=== PATIENT | female | born 1970 | race Caucasian/White ===

== ENCOUNTER 2016-08-05 04:08 | Emergency (ER) | payer OTHER ==
--- NOTE | 2016-08-05 05:38 | ED NURSING NOTES ---
Clinical Report - Nurses [facility] [address] [place] [address] 08/05/2016 4:09 Patient: AMELIA MEJIA TRIAGE Triage time 04:17. Acuity: LEVEL 4. Chief Complaint: (right sided rib pain). Alert. No acute distress. --04:26 Deepti Cooper R.N. 04:17 08/05/16. BP: 122/88. HR: 76. RR: 15. O2 saturation: 98% on room air. Betancourt-Roper pain scale: 2/10. --04:26 Deepti Cooper R.N. Weight: 65.7 kg stated. Height/Length: 65 inches Per Patient. BMI: 24.1. --04:25 Deepti Cooper R.N. Medications Albuterol Sulfate Inhalation. --04:20 Deepti Cooper R.N. Azithromycin Oral (Tablet 250 mg) 2 tablets, daily, started 2 days ago. --04:20 Deepti Cooper R.N. Benadryl Oral (Tablet 25 mg) 2 tablets, at bedtime. --04:21 Deepti Cooper R.N. Melatonin Oral (Tablet 5 mg) 1 tablet, at bedtime. --04:21 Deepti Cooper R.N. Multivitamins Oral. --04:22 Deepti Cooper R.N. ProAir HFA Inhalation. --04:22 Deepti Cooper R.N. Propranolol HCl Oral 40 mg, 3x a day. --04:22 Deepti Cooper R.N. Strattera Oral (Capsule 60 mg) 1 capsule, daily. --04:23 Deepti Cooper R.N. Allergies Sulfa Antibiotics. --04:20 Deepti Cooper R.N. History Primary physician (Dr. Ambrose). ( pt thinks she may have broken ribs coughing.). Onset. (about 2 days ago). 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 PAST MEDICAL HX: Immunizations: up-to-date. Last normal menstrual period unknown. Uses an intrauterine device. SOCIAL HX: Light tobacco smoker (cigarette)- less than 1/2 a pack per day. Occasional alcohol use. No drug use. NUTRITIONAL RISK ASSESSMENT: The nutritional risk assessment revealed no deficiencies. FUNCTIONAL ASSESSMENT: Functional assessment: no impairments noted. --04:26 Deepti Cooper R.N. PROBLEMS: Anxiety Reaction. Depression. Migraine Headache. ADHD - Attention Deficit Hyperactivity Disorder. --04:24 Deepti Cooper R.N. ADDITIONAL SURGERIES: Bronchoscopy. . Hystoscopy. --04:24 Deepti Cooper R.N. Interventions ID band on patient. To treatment room. --04: Deepti Cooper R.N. PHYSICAL ASSESSMENT Ambulatory to room. GENERAL / NEURO / PSYCH: Alert. Oriented X 4. Appears in no acute distress. HEENT: Mucous membranes are pink. RESPIRATORY: Respirations not labored. CVS: Capillary refill less than 2 seconds. SKIN: Skin is warm and dry. --04:26 Deepti Cooper R.N. NURSING PROGRESS NOTES Head of bed elevated. Two patient identifiers checked. Call light placed in reach. Side rails up x 1. Bed placed in lowest position. Brakes of bed on. --04:27 Deepti Cooper R.N. Patient ready for evaluation- chart flagged. --04:27 Deepti Cooper R.N. 04:48 08/05/2016 Zofran ODT (Ondansetron) PO Oral Disintegrating Tablets 4 mg given. Allergies verified and confirmed 5 rights. --04:50 Deepti Cooper R.N. 04:49 08/05/2016 Percocet (Oxycodone-Acetaminophen) PO 5/325 mg Tablets 1 tab given. Allergies verified, confirmed 5 rights and sedative warning given to the patient. --04:50 Deepti Cooper R.N. DISPOSITION / DISCHARGE Condition at departure: stable. No learning barriers present. Discharge instructions provided and reviewed with the patient. Reviewed medication(s) side effects, precautions, dosing and course information. Prescription(s) given to the patient. Patient verbalized understanding. Written instructions provided in Greek. The patient was discharged home and accompanied by market intelligence consultant. She left the Emergency Department ambulatory and via private vehicle. Hvac Designer driving. --05:55 Deepti Cooper R.N. 05:55 08/05/16. BP: 127/77. HR: 71. RR: 15 (regular and unlabored). O2 saturation: 98% on room air. Temp: deferred. Betancourt-Roper pain scale: 2/10. --05:55 Deepti Cooper R.N. Locked/Released at 08/05/2016 5:56 by Deepti Cooper R.N.
--- NOTE | 2016-08-05 05:38 | ED CLINICAL REPORT ---
Clinical Report - Physicians/Mid Levels [facility] [address] [place] [address] 08/05/2016 4:09 Patient: AMELIA HANKINS Time Seen: 04:31. Arrived- By private vehicle. Historian- patient. HISTORY OF PRESENT ILLNESS Chief Complaint: Injury to CHEST. Location of injuries- chest. The injury occurred 2 days ago. Occurred at home. (coughed hard and noted "pop" in the right lateral chest wall area with subsequent tenderness). The patient complains of moderate pain. No neck pain, loss of consciousness or seizure. Not dazed. REVIEW OF SYSTEMS Uses an intrauterine device. No numbness, weakness, headache, depression or nausea. No bladder dysfunction, laceration, fever or vomiting. She has had chest pain. All systems otherwise negative, except as recorded above. PAST HISTORY Primary physician Dr. Ambrose PROBLEMS: Anxiety Reaction. Depression. Migraine Headache. ADHD - Attention Deficit Hyperactivity Disorder. Pneumonia - recently diagnosed (day 2 of azithromycin) SURGERIES: Bronchoscopy. . Hystoscopy. SOCIAL HISTORY Smoker- current status unknown. Occasional alcohol use. No drug use. ADDITIONAL NOTES The nursing notes have been reviewed. PHYSICAL EXAM Vital Signs: 08/05/2016 04:17 BP: 122/88. HR: 76. RR: 15. O2 saturation: 98%. Betancourt-Roper pain scale: 2/10. Appearance: Alert. Oriented X3. Anxious. Patient in moderate distress. Head: Head non-tender. No swelling of head. No Roger's sign or raccoon eyes. Eyes: EOM intact. ENT: No dental injury. Pharynx normal. Neck: Non-tender. CVS: Heart sounds normal. Pulses normal. No JVD, extra heart sounds or cardiac murmur. Respiratory: No respiratory distress. Chest wall injury: moderate tenderness located in the lower, left and lateral chest. No abrasion. No ecchymosis. No deformity. Breath sounds normal. No decreased breath sounds, rales, wheezes, rhonchi or crepitus. Abdomen: No visible injury. Soft and nontender. No mass. Back: ROM normal. No vertebral point tenderness. Skin: Skin intact. Skin warm and dry. Normal skin color. Normal skin turgor. Extremities: Normal inspection. Pelvis stable. Extremities atraumatic. No lower extremity edema. (no calf tenderness). Neuro: [place] Coma Scale: 15- eyes open spontaneously (4); best verbal response- oriented x 3 (5); best motor response- obeys commands (6). Oriented X 3. No motor deficit. No sensory deficit. LABS, X-RAYS, AND EKG Chest X-ray: Normal heart size. Mediastinum normal. Great vessels normal. Soft tissues normal. No infiltrate. No fracture. No bony lesion present. (increased interstitial markings - c/w resolving pneumonia / pneumonitis). Views: PA and lateral. Technique: good. The X-rays were interpreted contemporaneously by me. The X-rays were discussed with the radiologist (Dr Landa will call or make a report to Dr. Arnol Hankins's pcp at [facility]). Pulse Oximetry: 08/05/2016 04:17 O2 saturation: 98%. (FIO2 - room air). Interpretation: normal. PROGRESS AND PROCEDURES Course of Care: Percocet 5 mg PO given. Zofran 4 mg ODT PO given. Patient is stable. Physical exam findings are improved. Symptoms much better. Patient/family counseled. Old medical records ordered. Disposition: Discharged. Condition: stable and improved. CLINICAL IMPRESSION Chest wall pain. An EKG was not performed because a noncardiac etiology was evident without doing an EKG. INSTRUCTIONS Apply ice. Do not work for two days. Do not smoke. Seek medical help to quit smoking. Warnings: SEDATIVE MEDICATION: You were given sedative medication during your visit. Do not drive or operate dangerous machinery. CONTROLLED SUBSTANCE WARNINGS. GENERAL WARNINGS: Return or contact your physician immediately if your condition worsens or changes unexpectedly, if not improving as expected, or if other problems arise. Your Current Medications: CONTINUE TAKING THE FOLLOWING MEDICATIONS: Albuterol Sulfate Inhalation. Azithromycin Oral : Tablet 250 mg, 2 tablets daily, Started: 2 days ago. Benadryl Oral : Tablet 25 mg, 2 tablets at bedtime. Melatonin Oral : Tablet 5 mg, 1 tablet at bedtime. Multivitamins Oral. ProAir HFA Inhalation. Propranolol HCl Oral : 40 mg 3x a day. Strattera Oral : Capsule 60 mg, 1 capsule daily. Prescription Medications: Hydrocodone/APAP 5mg / 325mg: take 1 orally every 8 hours as needed for pain. Dispense ten (10). No refill. OTC Medications: Acetaminophen (available over the counter): take according to label instructions. Motrin (available over the counter): take according to label instructions. Follow-up: Follow up with your doctor tomorrow. (Electronically signed by aMik Syed DO 08/05/2016 6:36)
--- NOTE | 2016-08-05 05:38 | ED CLINICAL REPORT ---
Clinical Report - Physicians/Mid Levels [facility] [address] [place] [address] 08/05/2016 4:09 Patient: AMELIA HANKINS Time Seen: 04:31. Arrived- By private vehicle. Historian- patient. HISTORY OF PRESENT ILLNESS Chief Complaint: Injury to CHEST. Location of injuries- chest. The injury occurred 2 days ago. Occurred at home. (coughed hard and noted "pop" in the right lateral chest wall area with subsequent tenderness). The patient complains of moderate pain. No neck pain, loss of consciousness or seizure. Not dazed. REVIEW OF SYSTEMS Uses an intrauterine device. No numbness, weakness, headache, depression or nausea. No bladder dysfunction, laceration, fever or vomiting. She has had chest pain. All systems otherwise negative, except as recorded above. PAST HISTORY Primary physician Dr. Ambrose PROBLEMS: Anxiety Reaction. Depression. Migraine Headache. ADHD - Attention Deficit Hyperactivity Disorder. Pneumonia - recently diagnosed (day 2 of azithromycin) SURGERIES: Bronchoscopy. . Hystoscopy. SOCIAL HISTORY Smoker- current status unknown. Occasional alcohol use. No drug use. ADDITIONAL NOTES The nursing notes have been reviewed. PHYSICAL EXAM Vital Signs: 08/05/2016 04:17 BP: 122/88. HR: 76. RR: 15. O2 saturation: 98%. Betancourt-Roper pain scale: 2/10. Appearance: Alert. Oriented X3. Anxious. Patient in moderate distress. Head: Head non-tender. No swelling of head. No Roger's sign or raccoon eyes. Eyes: EOM intact. ENT: No dental injury. Pharynx normal. Neck: Non-tender. CVS: Heart sounds normal. Pulses normal. No JVD, extra heart sounds or cardiac murmur. Respiratory: No respiratory distress. Chest wall injury: moderate tenderness located in the lower, left and lateral chest. No abrasion. No ecchymosis. No deformity. Breath sounds normal. No decreased breath sounds, rales, wheezes, rhonchi or crepitus. Abdomen: No visible injury. Soft and nontender. No mass. Back: ROM normal. No vertebral point tenderness. Skin: Skin intact. Skin warm and dry. Normal skin color. Normal skin turgor. Extremities: Normal inspection. Pelvis stable. Extremities atraumatic. No lower extremity edema. (no calf tenderness). Neuro: [place] Coma Scale: 15- eyes open spontaneously (4); best verbal response- oriented x 3 (5); best motor response- obeys commands (6). Oriented X 3. No motor deficit. No sensory deficit. LABS, X-RAYS, AND EKG Chest X-ray: Normal heart size. Mediastinum normal. Great vessels normal. Soft tissues normal. No infiltrate. No fracture. No bony lesion present. (increased interstitial markings - c/w resolving pneumonia / pneumonitis). Views: PA and lateral. Technique: good. The X-rays were interpreted contemporaneously by me. The X-rays were discussed with the radiologist (Dr Landa will call or make a report to Dr. Arnol Hankins's pcp at [facility]). Pulse Oximetry: 08/05/2016 04:17 O2 saturation: 98%. (FIO2 - room air). Interpretation: normal. PROGRESS AND PROCEDURES Course of Care: Percocet 5 mg PO given. Zofran 4 mg ODT PO given. Patient is stable. Physical exam findings are improved. Symptoms much better. Patient/family counseled. Old medical records ordered. Disposition: Discharged. Condition: stable and improved. CLINICAL IMPRESSION Chest wall pain. An EKG was not performed because a noncardiac etiology was evident without doing an EKG. INSTRUCTIONS Apply ice. Do not work for two days. Do not smoke. Seek medical help to quit smoking. Warnings: SEDATIVE MEDICATION: You were given sedative medication during your visit. Do not drive or operate dangerous machinery. CONTROLLED SUBSTANCE WARNINGS. GENERAL WARNINGS: Return or contact your physician immediately if your condition worsens or changes unexpectedly, if not improving as expected, or if other problems arise. Your Current Medications: CONTINUE TAKING THE FOLLOWING MEDICATIONS: Albuterol Sulfate Inhalation. Azithromycin Oral : Tablet 250 mg, 2 tablets daily, Started: 2 days ago. Benadryl Oral : Tablet 25 mg, 2 tablets at bedtime. Melatonin Oral : Tablet 5 mg, 1 tablet at bedtime. Multivitamins Oral. ProAir HFA Inhalation. Propranolol HCl Oral : 40 mg 3x a day. Strattera Oral : Capsule 60 mg, 1 capsule daily. Prescription Medications: Hydrocodone/APAP 5mg / 325mg: take 1 orally every 8 hours as needed for pain. Dispense ten (10). No refill. OTC Medications: Acetaminophen (available over the counter): take according to label instructions. Motrin (available over the counter): take according to label instructions. Follow-up: Follow up with your doctor tomorrow. (Electronically signed by Maik Syed DO 08/05/2016 6:36)
--- NOTE | 2016-08-05 05:38 | ED NURSING NOTES ---
Clinical Report - Nurses [facility] [address] [place] [address] 08/05/2016 4:09 Patient: AMELIA MEJIA TRIAGE Triage time 04:17. Acuity: LEVEL 4. Chief Complaint: (right sided rib pain). Alert. No acute distress. --04:26 Deepti Cooper R.N. 04:17 08/05/16. BP: 122/88. HR: 76. RR: 15. O2 saturation: 98% on room air. Betancourt-Roper pain scale: 2/10. --04:26 Deepti Cooper R.N. Weight: 65.7 kg stated. Height/Length: 65 inches Per Patient. BMI: 24.1. --04:25 Deepti Cooper R.N. Medications Albuterol Sulfate Inhalation. --04:20 Deepti Cooper R.N. Azithromycin Oral (Tablet 250 mg) 2 tablets, daily, started 2 days ago. --04:20 Deepti Cooper R.N. Benadryl Oral (Tablet 25 mg) 2 tablets, at bedtime. --04:21 Deepti Cooper R.N. Melatonin Oral (Tablet 5 mg) 1 tablet, at bedtime. --04:21 Deepti Cooper R.N. Multivitamins Oral. --04:22 Deepti Cooper R.N. ProAir HFA Inhalation. --04:22 Deepti Cooper R.N. Propranolol HCl Oral 40 mg, 3x a day. --04:22 Deepti Cooper R.N. Strattera Oral (Capsule 60 mg) 1 capsule, daily. --04:23 Deepti Cooper R.N. Allergies Sulfa Antibiotics. --04:20 Deepti Cooper R.N. History Primary physician (Dr. Ambrose). ( pt thinks she may have broken ribs coughing.). Onset. (about 2 days ago). 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 PAST MEDICAL HX: Immunizations: up-to-date. Last normal menstrual period unknown. Uses an intrauterine device. SOCIAL HX: Light tobacco smoker (cigarette)- less than 1/2 a pack per day. Occasional alcohol use. No drug use. NUTRITIONAL RISK ASSESSMENT: The nutritional risk assessment revealed no deficiencies. FUNCTIONAL ASSESSMENT: Functional assessment: no impairments noted. --04:26 Deepti Cooper R.N. PROBLEMS: Anxiety Reaction. Depression. Migraine Headache. ADHD - Attention Deficit Hyperactivity Disorder. --04:24 Deepti Cooper R.N. ADDITIONAL SURGERIES: Bronchoscopy. . Hystoscopy. --04:24 Deepti Cooper R.N. Interventions ID band on patient. To treatment room. --04: Deepti Cooper R.N. PHYSICAL ASSESSMENT Ambulatory to room. GENERAL / NEURO / PSYCH: Alert. Oriented X 4. Appears in no acute distress. HEENT: Mucous membranes are pink. RESPIRATORY: Respirations not labored. CVS: Capillary refill less than 2 seconds. SKIN: Skin is warm and dry. --04:26 Deepti Cooper R.N. NURSING PROGRESS NOTES Head of bed elevated. Two patient identifiers checked. Call light placed in reach. Side rails up x 1. Bed placed in lowest position. Brakes of bed on. --04:27 Deepti Cooper R.N. Patient ready for evaluation- chart flagged. --04:27 Deepti Cooper R.N. 04:48 08/05/2016 Zofran ODT (Ondansetron) PO Oral Disintegrating Tablets 4 mg given. Allergies verified and confirmed 5 rights. --04:50 Deepti Cooper R.N. 04:49 08/05/2016 Percocet (Oxycodone-Acetaminophen) PO 5/325 mg Tablets 1 tab given. Allergies verified, confirmed 5 rights and sedative warning given to the patient. --04:50 Deepti Cooper R.N. DISPOSITION / DISCHARGE Condition at departure: stable. No learning barriers present. Discharge instructions provided and reviewed with the patient. Reviewed medication(s) side effects, precautions, dosing and course information. Prescription(s) given to the patient. Patient verbalized understanding. Written instructions provided in [place]. The patient was discharged home and accompanied by student records specialist. She left the Emergency Department ambulatory and via private vehicle. Educational Adviser driving. --05:55 Deepti Cooper R.N. 05:55 08/05/16. BP: 127/77. HR: 71. RR: 15 (regular and unlabored). O2 saturation: 98% on room air. Temp: deferred. Betancourt-Roper pain scale: 2/10. --05:55 Deepti Cooper R.N. Locked/Released at 08/05/2016 5:56 by Deepti Cooper R.N.
--- NOTE | 2016-08-05 05:38 | ED ORDER SUMMARY ---
..... Patient: AMELIA MEJIA OrderSheet [facility] VisitID: [id number] [address] [place] [address] 46y, F Registration Date/Time: 08/05/2016 ORDER SHEET Weight: 65.7 kg (stated) Allergies: Sulfa Antibiotics GENERAL ORDERS: Chest 2V Urgent (04:46 08/05/2016 [facility]) (4:55 Mariah) MEDICATION ORDERS: Percocet PO 5/325 mg (HIGH ALERT MEDICATION, NOW) (04:47 08/05/2016 [facility]) (Ack 4:47 RCollier R.N.) (4:50 RCollier R.N.) Zofran ODT PO 4 mg (NOW) (04:47 08/05/2016 [facility]) (Ack 4:47 RCollier R.N.) (4:50 RCollier R.N.) IV FLUIDS: ORDER SHEET NOTES: [Electronically signed by Deepti Cooper R.N. (05:56 08/05/2016)] [Electronically signed by Maik Syed DO (06:36 08/05/2016)] [Electronically locked/signed by Deepti Cooper R.N. (05:56 08/05/2016)]
--- NOTE | 2016-08-05 05:38 | ED ORDER SUMMARY ---
..... Patient: AMELIA MEJIA OrderSheet [facility] VisitID: [id number] [address] [place] [address] 46y, F Registration Date/Time: 08/05/2016 ORDER SHEET Weight: 65.7 kg (stated) Allergies: Sulfa Antibiotics GENERAL ORDERS: Chest 2V Urgent (04:46 08/05/2016 [facility]) (4:55 Mariah) MEDICATION ORDERS: Percocet PO 5/325 mg (HIGH ALERT MEDICATION, NOW) (04:47 08/05/2016 [facility]) (Ack 4:47 RCollier R.N.) (4:50 RCollier R.N.) Zofran ODT PO 4 mg (NOW) (04:47 08/05/2016 [facility]) (Ack 4:47 RCollier R.N.) (4:50 RCollier R.N.) IV FLUIDS: ORDER SHEET NOTES: [Electronically signed by Deepti Cooper R.N. (05:56 08/05/2016)] [Electronically signed by Maik Syed DO (06:36 08/05/2016)] [Electronically locked/signed by Deepti Cooper R.N. (05:56 08/05/2016)]
--- NOTE | 2016-08-05 06:37 | ED MED RECONCILIATION SUMMARY ---
Patient: AMELIA MEJIA Medication Reconciliation Report [facility] VisitID: [id number] [place] [address] 46y, F Registration Date/Time: 08/05/2016 Weight: 65.7 kg Height/Length: 65 in. BMI: 24.1 ALLERGIES: Sulfa Antibiotics The patient's Home Medications are listed below: CONTINUE TAKING THE FOLLOWING MEDICATIONS: Albuterol Sulfate Inhalation Azithromycin Oral (250 mg) 2 tablets, daily Benadryl Oral (25 mg) 2 tablets, at bedtime Melatonin Oral (5 mg) 1 tablet, at bedtime Multivitamins Oral ProAir HFA Inhalation Propranolol HCl Oral 40 mg, 3x a day Strattera Oral (60 mg) 1 capsule, daily The source(s) of the original Home Medication information: Not obtained. The following Medications were given to the patient in the Emergency Department: Zofran ODT [PO] PO 4 mg, administered: 08/05/2016 4:48:00 AM Percocet [PO] PO 1 tab, administered: 08/05/2016 4:49:00 AM The following Medications were prescribed to the patient: Acetaminophen (available over the counter): take according to label instructions. -- Maik Syed DO Motrin (available over the counter): take according to label instructions. -- Maik Syed DO Hydrocodone/APAP 5mg / 325mg: take 1 orally every 8 hours as needed for pain. Dispense ten (10). No refill. -- Maik Syed DO
--- NOTE | 2016-08-05 06:37 | ED MAR SUMMARY ---
..... Medication Administration Record [facility] [address] [place] [address] Patient: AMELIA MEJIA Visit ID: [id number] 46y, F Weight: 65.7 kg Height/Length: 65 in BMI: 24.1 ALLERGIES: Sulfa Antibiotics Given 04:48 08/05/2016 Deepti Cooper, R.N. Medication Administered: ZOFRAN ODT [PO] (ONDANSETRON), Dose: 4 mg Oral Disintegrating Tablets PO. Medication Ordered: Zofran ODT PO 4 mg (NOW). Given 04:49 08/05/2016 Deepti Cooper, R.N. Medication Administered: PERCOCET [PO] (OXYCODONE-ACETAMINOPHEN), Dose: 1 tab 5/325 mg Tablets PO. Medication Ordered: Percocet PO 5/325 mg (HIGH ALERT MEDICATION, NOW).
--- NOTE | 2016-08-05 06:37 | ED DISCHARGE INSTRUCTIONS ---
Patient: AMELIA MEJIA General Instructions [facility] VisitID: [id number] [place] [address] 46y, F Registration Date/Time: 08/05/2016 Chest wall pain. An EKG was not performed because a noncardiac etiology was evident without doing an EKG. INSTRUCTIONS Apply ice. Do not work for two days. Do not smoke. Seek medical help to quit smoking. Warnings: SEDATIVE MEDICATION: You were given sedative medication during your visit. Do not drive or operate dangerous machinery. CONTROLLED SUBSTANCE WARNINGS. GENERAL WARNINGS: Return or contact your physician immediately if your condition worsens or changes unexpectedly, if not improving as expected, or if other problems arise. Your Current Medications: CONTINUE TAKING THE FOLLOWING MEDICATIONS: Albuterol Sulfate Inhalation. Azithromycin Oral : Tablet 250 mg, 2 tablets daily, Started: 2 days ago. Benadryl Oral : Tablet 25 mg, 2 tablets at bedtime. Melatonin Oral : Tablet 5 mg, 1 tablet at bedtime. Multivitamins Oral. ProAir HFA Inhalation. Propranolol HCl Oral : 40 mg 3x a day. Strattera Oral : Capsule 60 mg, 1 capsule daily. Prescription Medications: Hydrocodone/APAP 5mg / 325mg: take 1 orally every 8 hours as needed for pain. Dispense ten (10). No refill. OTC Medications: Acetaminophen (available over the counter): take according to label instructions. Motrin (available over the counter): take according to label instructions. Follow-up: Follow up with your doctor tomorrow. ADDITIONAL INFORMATION Chest Strain A strain of the chest is due to stretching and tearing of the muscle fibers between the ribs. This may occur as a result of severe coughing, strenuous lifting or twisting injuries of the upper back. This usually causes increased pain with movement or deep breathing. This may take a few days to a few weeks to heal. Home Care: Rest. Avoid heavy lifting or strenuous exertion. Avoid any activity that causes pain. If you have a severe cough, use a cough syrup such as Robitussin DM (containing dextromethorphan) unless another cough medicine was prescribed. You may use acetaminophen (Tylenol) or ibuprofen (Motrin, Advil) to control pain, unless another medicine was prescribed. [ NOTE: If you have chronic liver or kidney disease or ever had a stomach ulcer or GI bleeding, talk with your doctor before using these medicines.] Follow Up with your doctor as directed. Get Prompt Medical Attention if any of the following occur: A change in the type of pain: if it feels different, becomes more severe, lasts longer, or begins to spread into your shoulder, arm, neck, jaw or back Shortness of breath or increased pain with breathing Cough with dark colored sputum (phlegm) or blood Weakness, dizziness, or fainting Fever of 100.4F (38C) or higher, or as directed by your healthcare provider How To Quit Smoking Smoking is one of the hardest habits to break. About half of all those who have ever smoked have been able to quit, and most of those (about 70%) who still smoke want to quit. Here are some of the best ways to stop smoking. Keep Trying: It takes most smokers about 8 tries before they are finally able to fully quit. So, the more often you try and fail, the better your chance of quitting the next time! So, don't give up! Go Cold [place]: Most ex-smokers quit cold turkey. Trying to cut back gradually doesn't seem to work as well, perhaps because it continues the smoking habit. Also, it is possible to fool yourself by inhaling more while smoking fewer cigarettes. This results in the same amount of nicotine in your body! Get Support: Support programs can make an important difference, especially for the heavy smoker. These groups offer lectures, methods to change your behavior and peer support. Call the free national Quitline for more information. 687-QYIA-HNS (539-323-6464). Low-cost or free programs are offered by many hospitals, local chapters of the [employer] [employer] (442-127-9460) and the [employer] (860-091-4675). Support at home is important too. Non-smokers can help by offering praise and encouragement. If the smoker fails to quit, encourage them to try again! Mtpc-Xfy-[id number] Medicines: For those who can't quit on their own, Nicotine Replacement Therapy (NRT) may make quitting much easier. Certain aids such as the nicotine patch, gum and lozenge are available without a prescription. However, it is best to use these under the guidance of your doctor. The skin patch provides a steady supply of nicotine to the body. Nicotine gum and lozenge gives temporary bursts of low levels of nicotine. Both methods take the edge off the craving for cigarettes. WARNING: If you feel symptoms of nicotine overdose, such as nausea, vomiting, dizziness, weakness, or fast heartbeat, stop using these and see your doctor. Prescription Medicines: After evaluating your smoking patterns and prior attempts at quitting, your doctor may offer a prescription medicine such as bupropion (Zyban, Wellbutrin), varenicline (Chantix, Champix), a niocotine inhaler or nasal spray. Each has its unique advantage and side effects which your doctor can review with you. Health Benefits Of Quitting: The benefits of quitting start right away and keep improving the longer you go without smokin minutes: blood pressure and pulse return to normal 8 hours: oxygen levels return to normal 2 days: ability to smell and taste begins to improve as damaged nerves start to regrow 2-3 weeks: circulation and lung function improves 1-9 months: decreased cough, congestion and shortness of breath; less tired 1 year: risk of heart attack decreases by half 5 years: risk of lung cancer decreases by half; risk of stroke becomes the same as a non-smoker For information about how to quit smoking, visit the following links: [employer] , Clearing the Air, Quit Smoking Today - an online booklet. http://www.smokefree.gov/pubs/clearing_the_air.pdf Smokefree.gov http://smokefree.gov/ QuitNet http://www.quitnet.com/ Hydrocodone Bitartrate, Acetaminophen Oral tablet What is this medicine? ACETAMINOPHEN; HYDROCODONE (a set a HAYDEE edu fen; kalyani droe KOE done) is a pain reliever. It is used to treat mild to moderate pain. How should I use this medicine? Take this medicine by mouth. Swallow it with a full glass of water. Follow the directions on the prescription label. If the medicine upsets your stomach, take the medicine with food or milk. Do not take more than you are told to take. Talk to your senior oracle dba regarding the use of this medicine in children. This medicine is not approved for use in children. What side effects may I notice from receiving this medicine? Side effects that you should report to your doctor or health post acute care nurse practitioner as soon as possible: allergic reactions like skin rash, itching or hives, swelling of the face, lips, or tongue breathing problems confusion feeling faint or lightheaded, falls stomach pain yellowing of the eyes or skin Side effects that usually do not require medical attention (report to your doctor or health post acute care nurse practitioner if they continue or are bothersome): nausea, vomiting stomach upset What may interact with this medicine? alcohol antihistamines isoniazid medicines for depression, anxiety, or psychotic disturbances medicines for sleep muscle relaxants naltrexone narcotic medicines (opiates) for pain phenobarbital ritonavir tramadol What if I miss a dose? If you miss a dose, take it as soon as you can. If it is almost time for your next dose, take only that dose. Do not take double or extra doses. Where should I keep my medicine? Keep out of the reach of children. This medicine can be abused. Keep your medicine in a safe place to protect it from theft. Do not share this medicine with anyone. Selling or giving away this medicine is dangerous and against the law. Store at room temperature between 15 and 30 degrees C (59 and 86 degrees F). Protect from light. Keep container tightly closed. Throw away any unused medicine after the expiration date. Discard unused medicine and used packaging carefully. Pets and children can be harmed if they find used or lost packages. What should I tell my health care provider before I take this medicine? They need to know if you have any of these conditions: brain tumor Crohn's disease, inflammatory bowel disease, or ulcerative colitis drink more than 3 alcohol-containing drinks per day drug abuse or addiction head injury heart or circulation problems kidney disease or problems going to the bathroom liver disease lung disease, asthma, or breathing problems an unusual or allergic reaction to acetaminophen, hydrocodone, other opioid analgesics, other medicines, foods, dyes, or preservatives or trying to get breast-feeding What should I watch for while using this medicine? Tell your doctor or health post acute care nurse practitioner if your pain does not go away, if it gets worse, or if you have new or a different type of pain. You may develop tolerance to the medicine. Tolerance means that you will need a higher dose of the medicine for pain relief. Tolerance is normal and is expected if you take the medicine for a long time. Do not suddenly stop taking your medicine because you may develop a severe reaction. Your body becomes used to the medicine. This does NOT mean you are addicted. Addiction is a behavior related to getting and using a drug for a non-medical reason. If you have pain, you have a medical reason to take pain medicine. Your doctor will tell you how much medicine to take. If your doctor wants you to stop the medicine, the dose will be slowly lowered over time to avoid any side effects. You may get drowsy or dizzy when you first start taking the medicine or change doses. Do not drive, use machinery, or do anything that may be dangerous until you know how the medicine affects you. Stand or sit up slowly. There are different types of narcotic medicines (opiates) for pain. If you take more than one type at the same time, you may have more side effects. Give your health care provider a list of all medicines you use. Your doctor will tell you how much medicine to take. Do not take more medicine than directed. Call emergency for help if you have problems breathing. The medicine will cause constipation. Try to have a bowel movement at least every 2 to 3 days. If you do not have a bowel movement for 3 days, call your doctor or health post acute care nurse practitioner. Too much acetaminophen can be very dangerous. Do not take Tylenol (acetaminophen) or medicines that contain acetaminophen with this medicine. Many non-prescription medicines contain acetaminophen. Always read the labels carefully. Acetaminophen Oral tablet What is this medicine? ACETAMINOPHEN (a set a HAYDEE edu fen) is a pain reliever. It is used to treat mild pain and fever. How should I use this medicine? Take this medicine by mouth with a glass of water. Follow the directions on the package or prescription label. Take your medicine at regular intervals. Do not take your medicine more often than directed. Talk to your senior oracle dba regarding the use of this medicine in children. While this drug may be prescribed for children as young as 6 years of age for selected conditions, precautions do apply. What side effects may I notice from receiving this medicine? Side effects that you should report to your doctor or health post acute care nurse practitioner as soon as possible: allergic reactions like skin rash, itching or hives, swelling of the face, lips, or tongue breathing problems fever or sore throat redness, blistering, peeling or loosening of the skin, including inside the mouth trouble passing urine or change in the amount of urine unusual bleeding or bruising unusually weak or tired yellowing of the eyes or skin Side effects that usually do not require medical attention (report to your doctor or health post acute care nurse practitioner if they continue or are bothersome): headache nausea, stomach upset What may interact with this medicine? alcohol imatinib isoniazid other medicines with acetaminophen What if I miss a dose? If you miss a dose, take it as soon as you can. If it is almost time for your next dose, take only that dose. Do not take double or extra doses. Where should I keep my medicine? Keep out of reach of children. Store at room temperature between 20 and 25 degrees C (68 and 77 degrees F). Protect from moisture and heat. Throw away any unused medicine after the expiration date. What should I tell my health care provider before I take this medicine? They need to know if you have any of these conditions: if you frequently drink alcohol containing drinks liver disease an unusual or allergic reaction to acetaminophen, other medicines, foods, dyes or preservatives or trying to get breast-feeding What should I watch for while using this medicine? Tell your doctor or health post acute care nurse practitioner if the pain lasts more than 10 days (5 days for children), if it gets worse, or if there is a new or different kind of pain. Also, check with your doctor if a fever lasts for more than 3 days. Do not take other medicines that contain acetaminophen with this medicine. Always read labels carefully. If you have questions, ask your doctor or pharmacist. If you take too much acetaminophen get medical help right away. Too much acetaminophen can be very dangerous and cause liver damage. Even if you do not have symptoms, it is important to get help right away. Ibuprofen Oral tablet What is this medicine? IBUPROFEN (eye BYOO proe fen) is a non-steroidal anti-inflammatory drug (NSAID). It is used for dental pain, fever, headaches or migraines, osteoarthritis, rheumatoid arthritis, or painful monthly periods. It can also relieve minor aches and pains caused by a cold, flu, or sore throat. How should I use this medicine? Take this medicine by mouth with a glass of water. Follow the directions on the prescription label. Take this medicine with food if your stomach gets upset. Try to not lie down for at least 10 minutes after you take the medicine. Take your medicine at regular intervals. Do not take your medicine more often than directed. A special MedGuide will be given to you by the pharmacist with each prescription and refill. Be sure to read this information carefully each time. Talk to your senior oracle dba regarding the use of this medicine in children. Special care may be needed. What side effects may I notice from receiving this medicine? Side effects that you should report to your doctor or health post acute care nurse practitioner as soon as possible: allergic reactions like skin rash, itching or hives, swelling of the face, lips, or tongue black or bloody stools, blood in the urine or in vomit breathing problems changes in vision chest pain general ill feeling or flu-like symptoms nausea or vomiting redness, blistering, peeling or loosening of the skin, including inside the mouth slurred speech or weakness on one side of the body stomach pain unexplained weight gain or swelling unusually weak or tired yellowing of eyes or skin Side effects that usually do not require medical attention (report to your doctor or health post acute care nurse practitioner if they continue or are bothersome): constipation or diarrhea dizziness gas or heartburn stomach upset What may interact with this medicine? Do not take this medicine with any of the following medications: cidofovir ketorolac methotrexate pemetrexed This medicine may also interact with the following medications: alcohol aspirin diuretics lithium other drugs for inflammation like prednisone warfarin What if I miss a dose? If you miss a dose, take it as soon as you can. If it is almost time for your next dose, take only that dose. Do not take double or extra doses. Where should I keep my medicine? Keep out of the reach of children. Store at room temperature between 15 and 30 degrees C (59 and 86 degrees F). Keep container tightly closed. Throw away any unused medicine after the expiration date. What should I tell my health care provider before I take this medicine? They need to know if you have any of these conditions: asthma cigarette smoker drink more than 3 alcohol containing drinks a day heart disease or circulation problems such as heart failure or leg edema (fluid retention) high blood pressure kidney disease liver disease stomach bleeding or ulcers an unusual or allergic reaction to ibuprofen, aspirin, other NSAIDS, other medicines, foods, dyes, or preservatives or trying to get breast-feeding What should I watch for while using this medicine? Tell your doctor or healthcare professional if your symptoms do not start to get better or if they get worse. This medicine does not prevent heart attack or stroke. In fact, this medicine may increase the chance of a heart attack or stroke. The chance may increase with longer use of this medicine and in people who have heart disease. If you take aspirin to prevent heart attack or stroke, talk with your doctor or health post acute care nurse practitioner. Do not take other medicines that contain aspirin, ibuprofen, or naproxen with this medicine. Side effects such as stomach upset, nausea, or ulcers may be more likely to occur. Many medicines available without a prescription should not be taken with this medicine. This medicine can cause ulcers and bleeding in the stomach and intestines at any time during treatment. Ulcers and bleeding can happen without warning symptoms and can cause . To reduce your risk, do not smoke cigarettes or drink alcohol while you are taking this medicine. You may get drowsy or dizzy. Do not drive, use machinery, or do anything that needs mental alertness until you know how this medicine affects you. Do not stand or sit up quickly, especially if you are an older patient. This reduces the risk of dizzy or fainting spells. This medicine can cause you to bleed more easily. Try to avoid damage to your teeth and gums when you brush or floss your teeth. You have been given the following additional information: Chest Wall Strain Smoking Cessation Hydrocodone Bitartrate, Acetaminophen Oral tablet Acetaminophen Oral tablet Ibuprofen Oral tablet Do not work for two days. (Electronically signed by Maik Syed DO 08/05/2016 6:36)
--- NOTE | 2016-08-05 06:37 | ED MAR SUMMARY ---
..... Medication Administration Record [facility] [address] [place] [address] Patient: AMELIA MEJIA Visit ID: [id number] 46y, F Weight: 65.7 kg Height/Length: 65 in BMI: 24.1 ALLERGIES: Sulfa Antibiotics Given 04:48 08/05/2016 Deepti Cooper, R.N. Medication Administered: ZOFRAN ODT [PO] (ONDANSETRON), Dose: 4 mg Oral Disintegrating Tablets PO. Medication Ordered: Zofran ODT PO 4 mg (NOW). Given 04:49 08/05/2016 Deepti Cooper, R.N. Medication Administered: PERCOCET [PO] (OXYCODONE-ACETAMINOPHEN), Dose: 1 tab 5/325 mg Tablets PO. Medication Ordered: Percocet PO 5/325 mg (HIGH ALERT MEDICATION, NOW).
--- NOTE | 2016-08-05 06:37 | ED MED RECONCILIATION SUMMARY ---
Patient: AMELIA MEJIA Medication Reconciliation Report [facility] VisitID: [id number] [place] [address] 46y, F Registration Date/Time: 08/05/2016 Weight: 65.7 kg Height/Length: 65 in. BMI: 24.1 ALLERGIES: Sulfa Antibiotics The patient's Home Medications are listed below: CONTINUE TAKING THE FOLLOWING MEDICATIONS: Albuterol Sulfate Inhalation Azithromycin Oral (250 mg) 2 tablets, daily Benadryl Oral (25 mg) 2 tablets, at bedtime Melatonin Oral (5 mg) 1 tablet, at bedtime Multivitamins Oral ProAir HFA Inhalation Propranolol HCl Oral 40 mg, 3x a day Strattera Oral (60 mg) 1 capsule, daily The source(s) of the original Home Medication information: Not obtained. The following Medications were given to the patient in the Emergency Department: Zofran ODT [PO] PO 4 mg, administered: 08/05/2016 4:48:00 AM Percocet [PO] PO 1 tab, administered: 08/05/2016 4:49:00 AM The following Medications were prescribed to the patient: Acetaminophen (available over the counter): take according to label instructions. -- Maik Syed DO Motrin (available over the counter): take according to label instructions. -- Maik Syed DO Hydrocodone/APAP 5mg / 325mg: take 1 orally every 8 hours as needed for pain. Dispense ten (10). No refill. -- Maik Syed DO
--- NOTE | 2016-08-05 16:09 | DIAGNOSTIC IMAGING REPORT ---
PROCEDURE: XR CHEST 2 VIEW INDICATION: Recent treatment for pneumonia. Cough with chest pain. TECHNIQUE: PA and lateral views. COMPARISON: None. FINDINGS: Mild parenchymal changes in the right mid and lower lung. Left lung is clear. Heart and mediastinum are normal. Thorax is normal. IMPRESSION: 1. Mild parenchymal changes in the right mid lower lung consistent with history of recent or resolving pneumonia. Follow-up chest x-ray after the patient acute illness is recommended to confirm complete resolution (4 weeks). 2. Findings discussed with Dr. Syed. 3. Report alert and findings called to Dr. Vu Ambrose.
== END 2016-08-05 05:54 | disposition home or self-care (01) ==
LOC: ED SRH 04:08
DX: R07.89 Other chest pain (principal); X50.9XXA Other and unspecified overexertion or strenuous movements or postures, initial encounter; Y93.89 Activity, other specified; Y92.009 Unspecified place in unspecified non-institutional (private) residence as the place of occurrence of the external cause; Y99.9 Unspecified external cause status; Z79.899 Other long term (current) drug therapy; F17.210 Nicotine dependence, cigarettes, uncomplicated; Z88.2 Allergy status to sulfonamides